=== PATIENT | female | born 1950 | race Caucasian/White ===

== ENCOUNTER → 2017-09-06 | Outpatient (CLI) | payer OTHER, MEDICARE | LOC: BRMIMAGING 12:55 | PROVIDERS: ATTEND Nurse Practitioner | DX: Z12.31 Encounter for screening mammogram for malignant neoplasm of breast (principal) | CPT/HCPCS: G0202 ==

== ENCOUNTER → 2017-09-14 | Outpatient (CLI) | payer OTHER, MEDICARE | LOC: CIMAGING 13:11 | PROVIDERS: ATTEND Nurse Practitioner | DX: R92.8 Other abnormal and inconclusive findings on diagnostic imaging of breast (principal) | CPT/HCPCS: G0206 ==

== ENCOUNTER → 2018-08-30 | Outpatient (CLI) | payer OTHER, MEDICARE | LOC: BRMIMAGING 14:18 | DX: Z12.31 Encounter for screening mammogram for malignant neoplasm of breast (principal) ==